=== PATIENT | male | born 1995 | race Caucasian/White ===

== ENCOUNTER 2019-06-30 14:17 | Emergency (ER) | payer OTHER ==
[~2019-06-30] VITALS: Ht 182.9 cm; Wt 111.7 kg
[2019-06-30] MEDS ORDERED: ADVIL (14:25)
[2019-06-30] MEDS ORDERED: TYLENOL 2 TABS (14:25)
[2019-06-30] MEDS ORDERED: CLINDAMYCIN 150 MG CAP PO ONE (15:30)
[2019-06-30] MEDS ORDERED: LIDOCAINE 1% MDV 20ML VIAL INFIL ONE (15:30)
[2019-06-30] MEDS ORDERED: CLIN150C14 PO (16:22)
[2019-06-30 16:34] VITALS: BP 136/84
== END 2019-06-30 16:36 | disposition home or self-care (01) ==
LOC: M ED 14:17
DX: S62.632B Displaced fracture of distal phalanx of right middle finger, initial encounter for open fracture (principal); S60.131A Contusion of right middle finger with damage to nail, initial encounter; W22.8XXA Striking against or struck by other objects, initial encounter; Y92.89 Other specified places as the place of occurrence of the external cause; Y99.0 Civilian activity done for income or pay